=== PATIENT | female | born 1970 | race Caucasian/White ===

== ENCOUNTER 2019-04-27 18:13 | Emergency (ER) | payer BC ==
[2019-04-27 18:51] LABS: ABS Eosinophils 0.1 10^3/ul (0-0.6); ABS Monocytes 0.4 10^3/ul (0-0.8); ABS Neutrophils 6.7 10^3/ul (1.5-7.7); Eosinophil % 0.6 %; Hematocrit 42 % (35-47); Hemoglobin 14.7 g/dL (12.0-16.0); Mean Corpuscular HGB Conc 35 g/dL (31-36); Mean Corpuscular Hemoglobin 33 pg (27-31); Mean Corpuscular Volume 93 fL (80-97); Mean Platelet Volume 7.8 fL (7.4-10.4); Platelet Count 314 10^3/uL (150-450); Red Blood Count 4.51 10^6 /uL (3.70-4.87); Red Cell Distribution Width 12 % (10-15); White Blood Count 9.1 10^3/uL (3.5-10.8)
[2019-04-27 19:10] LABS: Albumin 4.4 g/dL (3.2-5.2); Albumin/Globulin Ratio 1.5 (1-3); BUN/Creatinine Ratio 14.1 (8-20); C Reactive Protein 1.58 mg/L (<8.01); Calcium 9.3 mg/dL (8.6-10.3); EGFR Non-African American 71.1 (>60); Potassium 3.8 mmol/L (3.5-5.0); Total Bilirubin 0.4 mg/dL (0.2-1.0); Total Protein 7.4 g/dL (6.4-8.9)
--- NOTE | 2019-04-27 22:00 | ED ---
GI/ HPI - HPI Summary HPI Summary: 49 year old female presents with abd pain for the past couple days. Pain has been present in the right lower quadrant. She admits to nausea but denies any vomiting. She has not had much appetite. She denies diarrhea. No previous abd surgeries. Denies any fevers. No chest pain shortness breath. No urinary symptoms. No abnormal vaginal discharge. - History of Current Complaint Chief Complaint: EDAbdPain Time Seen by Provider: 04/27/19 21:48 Stated Complaint: R SIDED ABD PAIN PER PT Hx Last Menstrual Period: 09/03/13 Pain Intensity: 3 - Allergy/Home Medications Allergies/Adverse Reactions: Allergies Allergy/AdvReac Type Severity Reaction Status Date / Time thimerosal AdvReac Hives Verified 04/27/19 18:16 antihistamines Allergy Palpitation Uncoded 04/27/19 18:16 s Home Medications: Home Medications Amphetamine/Dextroamph ER(NF) [Adderal XR (NF)] 20 mg PO DAILY 04/01/13 [ History Confirmed 04/27/19] Diazepam TAB(*) [Valium TAB(*)] 10 mg PO DAILY PRN 04/01/13 [History Confirmed 04/27/19] Cholecalciferol (Vitamin D3) [Vitamin D3] 2,000 unit PO DAILY 04/27/19 [History Confirmed 04/27/19] traZODone TAB* [Desyrel TAB*] 1 - 2 tab PO BEDTIME 04/27/19 [History Confirmed 04/27/19] PMH/Surg Hx/FS Hx/Imm Hx Endocrine/Hematology History: Denies: Hx Anticoagulant Therapy Respiratory History: Denies: Hx Asthma - Cancer History Hx Chemotherapy: No Hx Radiation Therapy: No Infectious Disease History: No Infectious Disease History: Denies: Traveled Outside the [place] in Last 30 Days - Family History Known Family History: Positive: Non-Contributory - Social History Alcohol Use: Occasionally Substance Use Type: Reports: None Smoking Status (MU): Never Smoked Tobacco Review of Systems Negative: Fever Negative: Chest Pain Negative: Shortness Of Breath Positive: Abdominal Pain, Diarrhea, Nausea. Negative: Vomiting All Other Systems Reviewed And Are Negative: Yes Physical Exam Triage Information Reviewed: Yes Vital Signs On Initial Exam: Initial Vitals Temp Pulse Resp BP Pulse Ox 98.7 F 86 16 154/88 99 04/27/19 18:15 04/27/19 18:15 04/27/19 18:15 04/27/19 18:15 04/27/19 18:15 Vital Signs Reviewed: Yes Appearance: Positive: Well-Appearing Skin: Positive: Warm, Dry Head/Face: Positive: Normal Head/Face Inspection Eyes: Positive: Normal, Conjunctiva Clear ENT: Positive: Pharynx normal Respiratory/Lung Sounds: Positive: Clear to Auscultation, Breath Sounds Present Cardiovascular: Positive: Normal, RRR Abdomen Description: Positive: Soft, Other: - tenderness in RLQ, no rovsings Bowel Sounds: Positive: Present Musculoskeletal: Positive: Normal Neurological: Positive: Normal Psychiatric: Positive: Normal Procedures - Sedation Patient Received Moderate/Deep Sedation with Procedure: No Diagnostics - Vital Signs Vital Signs Temp Pulse Resp BP Pulse Ox 04/27/19 20:45 99.2 F 80 15 143/83 97 04/27/19 18:15 98.7 F 86 16 154/88 99 - Laboratory Lab Results: Lab Results 04/27/19 04/27/19 04/27/19 Range/Units 18:31 18:31 18:31 WBC 9.1 (3.5-10.8) 10^3/uL RBC 4.51 (3.70-4.87) 10^6 /uL Hgb 14.7 (12.0-16.0) g/dL Hct 42 (35-47) % MCV 93 (80-97) fL MCH 33 H (27-31) pg MCHC 35 (31-36) g/dL RDW 12 (10-15) % Plt Count 314 (150-450) 10^3/uL MPV 7.8 (7.4-10.4) fL Neut % (Auto) 72.9 % Lymph % (Auto) 22.0 % [place] % (Auto) 4.1 % Eos % (Auto) 0.6 % Baso % (Auto) 0.4 % Absolute Neuts (auto) 6.7 (1.5-7.7) 10^3/ul Absolute Lymphs (auto) 2.0 (1.0-4.8) 10^3/ul Absolute Monos (auto) 0.4 (0-0.8) 10^3/ul Absolute Eos (auto) 0.1 (0-0.6) 10^3/ul Absolute Basos (auto) 0.0 (0-0.2) 10^3/ul Absolute Nucleated RBC 0.0 10^3/ul Nucleated RBC % 0.0 Sodium 137 (135-145) mmol/L Potassium 3.8 (3.5-5.0) mmol/L Chloride 103 (101-111) mmol/L Carbon Dioxide 25 (22-32) mmol/L Anion Gap 9 (2-11) mmol/L BUN 12 (6-24) mg/dL Creatinine 0.85 (0.51-0.95) mg/dL Est GFR ( Amer) 86.0 (>60) Est GFR (Non-Af Amer) 71.1 (>60) BUN/Creatinine Ratio 14.1 (8-20) Glucose 84 (70-100) mg/dL Lactic Acid 1.0 (0.5-2.0) mmol/L Calcium 9.3 (8.6-10.3) mg/dL Total Bilirubin 0.40 (0.2-1.0) mg/dL AST 15 (13-39) U/L ALT 18 (7-52) U/L Alkaline Phosphatase 72 (34-104) U/L C-Reactive Protein 1.58 (<8.01) mg/L Total Protein 7.4 (6.4-8.9) g/dL Albumin 4.4 (3.2-5.2) g/dL Globulin 3.0 (2-4) g/dL Albumin/Globulin Ratio 1.5 (1-3) Lipase 14 (11.0-82.0) U/L Result Diagrams: 04/27/19 18:31 04/27/19 18:31 Lab Statement: Any lab studies that have been ordered have been reviewed, and results considered in the medical decision making process. - CT abd CT Interpretation Completed By: Radiologist Summary of CT Findings: IMPRESSION: 1. The appendix is unremarkable. 2. No acute CT pathology. - Ultrasound No standard instances Ultrasound Interpretation Completed By: Radiologist Summary of Ultrasound Findings: IMPRESSION: 1. There is a small intramural uterine fibroid in the uterine fundus measuring a maximum of 5 mm. 2. The right ovary was not visualized. Obscured by bowel gas. GIGU Course/Dx - Course Course Of Treatment: 49 year old female presents with abd pain for the past couple days. Pain has been present in the right lower quadrant. She admits to nausea but denies any vomiting. She has not had much appetite. She denies diarrhea. No previous abd surgeries. Denies any fevers. No chest pain shortness breath. No urinary symptoms. No abnormal vaginal discharge. On exam tenderness right lower quadrant. wbc normal. crp normal. CT no acute findings. u/s right ovary no visualized well. told follow up with primary. patient understand and agrees with plan. - Diagnoses Differential Diagnoses - Female: Appendicitis, Gastroenteritis (Viral), Ovarian Cyst Provider Diagnoses: Abdominal pain Discharge ED - Sign-Out/Discharge Documenting (check all that apply): Patient Departure - Discharge Plan Condition: Good Disposition: HOME Patient Education Materials: Acute Abdominal Pain (ED) Referrals: Luis Cormier MD [Primary Care Provider] - Additional Instructions: Take ibuprofen or Tylenol for pain as needed every 6 hours Follow up with primary within 5 days Return to ED if develop any new or worsening symptoms - Billing Disposition and Condition Condition: GOOD Disposition: Home
[2019-04-27 23:01] LABS: Urine Appearance Clear; Urine Bilirubin Negative (Negative); Urine Blood 2+ (Negative); Urine Color Yellow; Urine Glucose Negative (Negative); Urine Ketones Negative (Negative); Urine Nitrite Negative (Negative); Urine Protein Negative (Negative); Urine Specific Gravity 1.014 (1.010-1.030); Urine Urobilinogen Negative (Negative)
[2019-04-27 23:09] LABS: Urine Bacteria Absent (Absent); Urine Red Blood Cell Trace(0-2/hpf) (Absent); Urine Squamous Epithelial Cell Present (Absent); Urine White Blood Cell Trace(0-5/hpf) (Absent)
[2019-04-27] MEDS ORDERED: Iohexol 300* (CONTRAST) 10 ML SDV IV ONE (23:45)
[2019-04-28 02:55] VITALS: BP 160/78
== END 2019-04-28 02:55 | disposition home or self-care (01) ==
LOC: ED 18:13
DX: R10.9 Unspecified abdominal pain (principal); R19.7 Diarrhea, unspecified; R11.0 Nausea; Z88.4 Allergy status to anesthetic agent; Z79.899 Other long term (current) drug therapy
CPT/HCPCS: 36415; 74177; 76830; 80053; 81003; 81015; 83605; 83690; 85025; 86140; 87086; 99283; Q9967

== ENCOUNTER 2020-08-12 09:57 | Inpatient (IN) ==
[2020-08-12 11:21] LABS: ABS Basophils 0.1 10^3/ul (0-0.2); ABS Eosinophils 0.1 10^3/ul (0-0.6); ABS Lymphocytes 1.9 10^3/ul (1.0-4.8); ABS Monocytes 0.4 10^3/ul (0-0.8); ABS Neutrophils 4.8 10^3/ul (1.5-7.7); Eosinophil % 1.6 %; Hematocrit 46 % (35-47); Hemoglobin 15.2 g/dL (12.0-16.0); Lymphocyte % 26.4 %; Mean Corpuscular HGB Conc 33 g/dL (31-36); Mean Corpuscular Hemoglobin 33 pg (27-31); Mean Corpuscular Volume 99 fL (80-97); Mean Platelet Volume 7.6 fL (7.4-10.4); Nucleated Red Blood Cells % 0.1; Platelet Count 304 10^3/uL (150-450); Red Blood Count 4.61 10^6 /uL (3.70-4.87); Red Cell Distribution Width 13 % (10-15); White Blood Count 7.4 10^3/uL (3.5-10.8)
[2020-08-12 11:36] LABS: ALT 13 U/L (7-52); AST 15 U/L (13-39); Albumin 4.2 g/dL (3.2-5.2); Albumin/Globulin Ratio 1.5 (1-3); Alkaline Phosphatase 61 U/L (35-149); Anion Gap 9 mmol/L (2-11); Blood Urea Nitrogen 7 mg/dL (6-24); CO2 Carbon Dioxide 24 mmol/L (22-32); Chloride 105 mmol/L (101-111); EGFR African American 110.8 (>60); EGFR Non-African American 91.6 (>60); Globulin 2.8 g/dL (2-4); Glucose 102 mg/dL (70-100); Potassium 3.6 mmol/L (3.5-5.0); Sodium 138 mmol/L (135-145)
[2020-08-12 12:54] LABS: Alcohol, S 98 mg/dL (<10); Salicylate < 2.50 mg/dL (<30)
[2020-08-12 12:55] LABS: Acetaminophen < 15 mcg/mL
[2020-08-12 13:07] LABS: TSH Ultra Thyroid Stim Horm 1.61 mcIU/mL (0.34-5.60)
[2020-08-12 13:20] LABS: Urine Benzodiazepine Screen Presumptive Positive (None Detect); Urine Cannabinoids Screen None Detected (None Detect); Urine Opiates Screen None Detected (None Detect)
[2020-08-12] MEDS ORDERED: Al Hydrox/Mg Hydrox/Simet LIQ 30 ML UDC PO PRN (13:33)
[2020-08-13] MEDS: Amphetamine/Dextroam ER 10(NF) 10 mg CAP.ER PO SCH (08:48)
[2020-08-13] MEDS: Vitamin THERAPEUTIC TAB PO SCH (08:48)
[2020-08-13] MEDS: Cholecalciferol (VIT D3) 1,000 unit TAB PO SCH (08:49)
[2020-08-13] MEDS ORDERED: Amphetamine/Dextroam ER 10(NF) 10 mg CAP.ER PO SCH (09:00)
[2020-08-13] MEDS ORDERED: Cholecalciferol (VIT D3) 1,000 unit TAB PO SCH (09:00)
[2020-08-14] MEDS: Cholecalciferol (VIT D3) 1,000 unit TAB PO SCH (09:11)
[2020-08-14] MEDS: Amphetamine/Dextroam ER 10(NF) 10 mg CAP.ER PO SCH (09:11)
[2020-08-14] MEDS: Vitamin THERAPEUTIC TAB PO SCH (09:11)
[2020-08-15] MEDS: Vitamin THERAPEUTIC TAB PO SCH (07:25)
[2020-08-15] MEDS: Cholecalciferol (VIT D3) 1,000 unit TAB PO SCH (07:25)
[2020-08-15] MEDS: Amphetamine/Dextroam ER 10(NF) 10 mg CAP.ER PO SCH (07:25)
[2020-08-15 08:47] VITALS: BP 115/51
== END 2020-08-15 14:00 | disposition home or self-care (01) ==
LOC: ED 09:57 → BSU 13:33 → ED 14:56
PROVIDERS: ADMIT Psychiatry & Neurology Psychiatry; ATTEND Psychiatry & Neurology Psychiatry